=== PATIENT | male | born 1960 | race Caucasian/White ===

== ENCOUNTER → 2021-04-09 11:23 | Outpatient (BNVA) | payer OTHER, SELFPAY | PROVIDERS: PCP Nurse Practitioner Family; Visit Provider Urology | DX: R97.20 Elevated prostate specific antigen [PSA] (principal); N32.0 Bladder-neck obstruction | CPT/HCPCS: 99212 ==

== ENCOUNTER 2021-05-21 14:39 | Outpatient (REF) | payer OTHER, SELFPAY ==
--- NOTE | ~2021-05-21 | US_ITS ---
EXAMINATION: US PELVIS LIMITED (BLADDER) CLINICAL INFORMATION: Poor urinary stream. COMPARISON: None TECHNIQUE: Real-time imaging of the bladder. FINDINGS: BLADDER: Well distended and normal. Bilateral ureteral jets are demonstrated. Prevoid bladder volume is 180 mL. Postvoid bladder volume is 63.2 mL. Prostate volume is 70.6 mL. There are calcifications seen in the prostate gland. US/US bladder IMPRESSION: [id number] residual bladder volume. No bladder mass. Enlarged prostate gland with scattered echogenic calcifications.
[2021-05-21 16:37] LABS: Prostate Specific Antigen 3.95 ng/mL (<0.05-4.0)
== END 2021-05-21 14:40 | disposition home or self-care (01) ==
LOC: HO.US 14:39
PROVIDERS: PCP Nurse Practitioner Family; Visit Provider Urology
DX: Z12.5 Encounter for screening for malignant neoplasm of prostate (principal); N40.1 Benign prostatic hyperplasia with lower urinary tract symptoms; N13.8 Other obstructive and reflux uropathy; R39.12 Poor urinary stream
CPT/HCPCS: 36415; 76857; 84153

== ENCOUNTER → 2021-05-28 14:15 | Outpatient (BNVA) | payer OTHER, SELFPAY | PROVIDERS: PCP Internal Medicine; Visit Provider Urology ==